=== PATIENT | male | born 1935 | race Caucasian/White ===

== ENCOUNTER 2018-08-01 20:38 | Inpatient (IN) | payer OTHER ==
[~2018-08-01] VITALS: Ht 175.2 cm; Wt 69.5 kg
--- NOTE | ~2018-08-01 | CON ---
[place], [place] REPORT OF CONSULTATION [id number] UN[facility] #: [id number] ROOM: 525 DOCTOR: PHD HIRAM SONNY BIRTHDATE: [birth year] DOS: 08/02/2018 HISTORY OF PRESENT ILLNESS: The patient is an 83-year-old male referred by the hospitalist with concerns for depression. The patient's daughter had requested he receive counseling during his stay due to his being in a assisted and the patient being very depressed and anxious about this. At the present time, the patient is on the 5th floor at [facility]. The patient has been for 64 years and has 2 daughters who live in [place]. The patient has been living alone since his lives at a assisted. 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 He denied alcohol, tobacco, or illegal drug use. PAST MEDICAL HISTORY: Coronary artery disease, diabetes, hypertension, hyperglycemia, neuropathy, osteoarthritis, syncope, and vitamin D deficiency. MEDICATIONS: Neurontin, Zestril, Toprol-XL, Wellbutrin-XL, Norvasc, Lovenox, Humalog, and Protonix. PHYSICAL EXAMINATION: GENERAL: The patient was lying comfortably in bed, in no apparent distress. NEUROLOGIC: He was awake, alert and oriented to person, place, time and situation. Eye contact and social skills were fair. The patient was cooperative, but guarded with respect to his emotional status. He reported increased depression and anxiety about his moving to a assisted. Mood was depressed and irritable and affect was restricted in range. He firmly denied suicidal and homicidal ideation, plan, and intent. He states that he is able to manage his depression and anxiety on his own, but could not identify any active coping strategies. Speech was within normal limits with respect to rhythm, rate, volume, and tone. Expressive and receptive language appeared within normal limits on a conversational basis. The patient appeared to be mildly confused at times discussing his history. Insight and judgment appeared fair. The patient denied a need or desire for mental health treatment at this time. DIAGNOSIS: Adjustment disorder with mixed anxiety and depressed mood. RECOMMENDATIONS: The patient would likely benefit from individual counseling; however, the patient stated that he is not interested at this time. Thank you very much for this consult. [place], [place] REPORT OF CONSULTATION NAME: QUINN MONK Keven UNIT #: [id number] ROOM: 525 DOCTOR: HIRAM, PHD SONNY BIRTHDATE: [birth year] Bernadette Barry, PhD CM:CONSTR:REPORT OF CONSULTATION 1414 08/03/18 0402 interface
--- NOTE | ~2018-08-01 | EKG ---
[place], [place] ELECTROCARDIOGRAM REPORT NAME: CHAS MONK UNIT #: [id number] ROOM: 505 DOCTOR: EPIPHANY DRAFT REPORT BIRTHDATE: [birth year] [facility] Test Date: 2018-08-02 Test Time: 00:34:51 Pat Name: CHAS MONK Department: Room: 505 Gender: M Health Care Law Specialist: Chas Javier : 1935 Requested By: SAÚL GOODE Order Number: [id number] Reading MD: Chas Lopez MD Measurements Intervals [place] Rate: 67 P: 38 WY: 213 QRS: -55 QRSD: 107 T: 26 QT: 458 QTc: 484 Interpretive Statements Sinus rhythm Borderline prolonged W[place] interval LAD, consider left anterior fascicular block Anterior Q waves, possibly due to previous anterior RI Baseline wander in lead(s) V3 Compared to ECG 08/01/2018 No significant change Electronically Signed On 08-02-2018 11:43:49 PST by Chas Lopez MD CM:EKGRPT:ELECTROCARDIOGRAM REPORT 0034 1143 SAÚL GOODE MD EPIPHANY DRAFT REPORT SAÚL GOODE MD
--- NOTE | ~2018-08-01 | EKG ---
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 Automatic: Chas Javier : 1935 Requested By: SAÚL GOODE Order Number: [id number] Reading MD: Chas Lopez MD Measurements Intervals [place] Rate: 70 P: 34 WV: 243 QRS: -49 QRSD: 112 T: 20 QT: 419 QTc: 453 Interpretive Statements Sinus rhythm Prolonged WV interval LAD, consider left anterior fascicular block Cannot rule out previous anterior MA Baseline wander in lead(s) II,III,aVL,aVF Compared to ECG 07/27/2018 12:06:06 First degree AV block now present Sinus bradycardia no longer present Electronically Signed On 08-02-2018 11:41:39 PST by Chas Lopez MD CM:EKGRPT:ELECTROCARDIOGRAM REPORT 1141 SAÚL GOODE MD EPIPHANY DRAFT REPORT SAÚL GOODE MD
--- NOTE | ~2018-08-01 | EKG ---
[place], [place] ELECTROCARDIOGRAM REPORT NAME: CHAS MONK UNIT #: [id number] ROOM: 505 DOCTOR: EPIPHANY DRAFT REPORT BIRTHDATE: [birth year] [facility] Test Date: 2018-08-02 Test Time: 03:26:45 Pat Name: CHAS MONK Department: Room: 505 Gender: M Survey Manager: : 1935 Requested By: SAÚL GOODE Order Number: [id number] Reading MD: Chas Lopez MD Measurements Intervals [place] Rate: 58 P: 26 VT: 219 QRS: -50 QRSD: 110 T: 31 QT: 479 QTc: 471 Interpretive Statements Sinus bradycardia Borderline prolonged [place] interval LAD, consider left anterior fascicular block Anterior Q waves, possibly due to previous anterior AR Baseline wander in lead(s) V4,V5 Compared to ECG 08/02/2018 No significant change Electronically Signed On 08-02-2018 11:45:45 PST by Chas Lopez MD CM:EKGRPT:ELECTROCARDIOGRAM REPORT 0326 1145 SAÚL GOODE MD EPIPHANY DRAFT REPORT SAÚL GOODE MD
[2018-08-01 20:38] VITALS: BP 177/102
[~2018-08-01 20:38] MED LIST: AMLODIPINE BESYL5 MG PO; ARTHROTEC 75 M1 EACH PO; BUPROPION XL300 MG PO; METOPROLOL SUCC50 M1 PO; NEURONTIN600 MG PO; OXYCODONE HCL15 MG PO; QUINAPRIL40 MG PO; RESTORIL30 M1 PO; TOPROL XL25 MG PO
[2018-08-01 21:35] LABS: BASO % 0.2 % (0.0-1.0); EOS # 0.1 10*3/uL (0.0-0.4); EOS % 1.7 % (1.0-4.0); HEMATOCRIT 37.3 % (42.0-52.0); HEMOGLOBIN 12.6 g/dl (14.0-18.0); LYMPH # 0.7 10*3/uL (1.3-4.4); LYMPH % 9.2 % (27.0-41.0); MEAN CELL VOLUME 93.5 fl (80.0-94.0); MEAN CORPUSCULAR HGB 31.6 pg (27.0-31.0); MEAN CORPUSCULAR HGB CONC 33.8 g/dl (33.0-37.0); MEAN PLATELET VOLUME 9.1 fl (9.6-12.3); MONO # 0.8 10*3/uL (0.1-1.0); MONO % 10.4 % (3.0-9.0); NEUT # 6.3 10*3/uL (2.3-7.9); NEUT % 78.3 % (47.0-73.0); PLATELET COUNT AUTOMATED 241 10*3/uL (130-400); RED BLOOD COUNT 3.99 10*6/uL (4.50-5.90); RED CELL DISTRI WIDTH 13.4 % (0-14.5); WHITE BLOOD COUNT 8.1 10*3/uL (4.8-10.8)
[2018-08-01 21:44] LABS: ACT PARTIAL THROMBO TIME 24.3 SECONDS (20.8-31.5)
[2018-08-01 21:48] VITALS: BP 151/73
[2018-08-01 21:52] LABS: ALBUMIN 3.5 gm/dl (3.1-4.5); ALKALINE PHOSPHATASE 105 U/L (45-117); BUN 19 mg/dl (7-24); CHLORIDE 107 mmol/L (98-107); CREATININE 1.14 mg/dL (0.70-1.30); LIPASE 159 U/L (73-393); POTASSIUM 4.1 mmol/L (3.5-5.1); SGOT/AST 14 IU/L (3-35); SGPT/ALT 21 U/L (12-78); SODIUM 139 mmol/L (136-145); TOTAL PROTEIN 7.2 gm/dL (6.4-8.2)
[2018-08-01 21:53] LABS: TROPONIN I < 0.015 ng/ml (<0.045)
[2018-08-01 22:28] LABS: BILIRUBIN NEGATIVE (NEGATIVE); BLOOD NEGATIVE (NEGATIVE); CLARITY CLEAR (CLEAR); COLOR YELLOW (YELLOW); GLUCOSE NEGATIVE (NEGATIVE); KETONE TRACE (NEGATIVE); LEUKO ESTERASE NEGATIVE (NEGATIVE); NITRITE NEGATIVE (NEGATIVE); UROBILINOGEN 0.2 E.U./dl (0.2-1.0)
[2018-08-01 23:55] VITALS: BP 170/90
[2018-08-02 00:20] VITALS: BP 180/84
[2018-08-02 08:00] VITALS: BP 144/72
[2018-08-02 09:45] LABS: BASO % 0.1 % (0.0-1.0); EOS # 0.1 10*3/uL (0.0-0.4); EOS % 1.6 % (1.0-4.0); HEMATOCRIT 35.1 % (42.0-52.0); HEMOGLOBIN 11.6 g/dl (14.0-18.0); LYMPH # 0.9 10*3/uL (1.3-4.4); LYMPH % 10.4 % (27.0-41.0); MEAN CELL VOLUME 94.9 fl (80.0-94.0); MEAN CORPUSCULAR HGB 31.4 pg (27.0-31.0); MEAN PLATELET VOLUME 8.8 fl (9.6-12.3); MONO # 0.9 10*3/uL (0.1-1.0); MONO % 9.8 % (3.0-9.0); NEUT # 6.7 10*3/uL (2.3-7.9); NEUT % 77.6 % (47.0-73.0); PLATELET COUNT AUTOMATED 205 10*3/uL (130-400); RED CELL DISTRI WIDTH 13.5 % (0-14.5); WHITE BLOOD COUNT 8.7 10*3/uL (4.8-10.8)
[2018-08-02 09:57] LABS: BUN 15 mg/dl (7-24); CHLORIDE 107 mmol/L (98-107); CREATININE 0.97 mg/dL (0.70-1.30); PHOSPHOROUS 2.2 mg/dL (2.5-4.9); SODIUM 141 mmol/L (136-145)
[2018-08-02 12:00] VITALS: BP 159/74
[2018-08-02 16:00] VITALS: BP 138/72; BP 149/55
[2018-08-02 20:00] VITALS: BP 127/85
[2018-08-03] VITALS: BP 146/96
[2018-08-03 08:00] VITALS: BP 182/95
== END 2018-08-03 10:20 | disposition home or self-care (01) | DRG 446 ==
LOC: ED 20:38 → EDHOLD 23:58 → 5E 23:58 → ICCU 08-03 08:13
PROVIDERS: Emergency Medicine Emergency Medical Services; Student in an Organized Health Care Education/Training Program
DX: K80.80 Other cholelithiasis without obstruction (principal); R19.7 Diarrhea, unspecified; R53.1 Weakness; D64.9 Anemia, unspecified; D72.9 Disorder of white blood cells, unspecified; K44.9 Diaphragmatic hernia without obstruction or gangrene; K59.00 Constipation, unspecified; M51.36 Other intervertebral disc degeneration, lumbar region; I10 Essential (primary) hypertension; E11.65 Type 2 diabetes mellitus with hyperglycemia; I25.10 Atherosclerotic heart disease of native coronary artery without angina pectoris; F43.23 Adjustment disorder with mixed anxiety and depressed mood; Z51.5 Encounter for palliative care; R07.89 Other chest pain; Z66 Do not resuscitate; M19.90 Unspecified osteoarthritis, unspecified site; E11.40 Type 2 diabetes mellitus with diabetic neuropathy, unspecified; K21.9 Gastro-esophageal reflux disease without esophagitis; Z96.653 Presence of artificial knee joint, bilateral; E55.9 Vitamin D deficiency, unspecified; R00.1 Bradycardia, unspecified; Z88.0 Allergy status to penicillin; Z91.81 History of falling; Z90.49 Acquired absence of other specified parts of digestive tract; Z95.5 Presence of coronary angioplasty implant and graft; Z80.9 Family history of malignant neoplasm, unspecified; Z82.3 Family history of stroke; Z79.899 Other long term (current) drug therapy

== ENCOUNTER → 2022-07-16 | Outpatient (CLI) | payer MEDICARE | END | disposition home or self-care (01) | LOC: WOUNDCARE 13:45 | PROVIDERS: ATTEND Nurse Practitioner Family | DX: L89.613 Pressure ulcer of right heel, stage 3 (principal); L89.626 Pressure-induced deep tissue damage of left heel; M19.90 Unspecified osteoarthritis, unspecified site; I10 Essential (primary) hypertension; Z87.891 Personal history of nicotine dependence; Z90.49 Acquired absence of other specified parts of digestive tract; Z96.659 Presence of unspecified artificial knee joint; Z79.82 Long term (current) use of aspirin; Z79.84 Long term (current) use of oral hypoglycemic drugs ==

== ENCOUNTER → 2022-07-23 | Outpatient (CLI) | payer MEDICARE | END | disposition home or self-care (01) | LOC: WOUNDCARE 02:36 | PROVIDERS: ATTEND Surgery Vascular Surgery | DX: L89.613 Pressure ulcer of right heel, stage 3 (principal); L89.626 Pressure-induced deep tissue damage of left heel; E11.9 Type 2 diabetes mellitus without complications; M19.90 Unspecified osteoarthritis, unspecified site; I10 Essential (primary) hypertension; F32.9 Major depressive disorder, single episode, unspecified; Z87.891 Personal history of nicotine dependence; Z90.49 Acquired absence of other specified parts of digestive tract; Z95.5 Presence of coronary angioplasty implant and graft; Z96.659 Presence of unspecified artificial knee joint ==

== ENCOUNTER → 2022-07-29 | Outpatient (CLI) | payer MEDICARE | END | disposition home or self-care (01) | LOC: WOUNDCARE 08:27 | PROVIDERS: ATTEND Nurse Practitioner Family | DX: L89.613 Pressure ulcer of right heel, stage 3 (principal); L89.626 Pressure-induced deep tissue damage of left heel; I10 Essential (primary) hypertension; E11.9 Type 2 diabetes mellitus without complications; M19.90 Unspecified osteoarthritis, unspecified site; F32.9 Major depressive disorder, single episode, unspecified; Z87.891 Personal history of nicotine dependence; Z90.49 Acquired absence of other specified parts of digestive tract; Z95.5 Presence of coronary angioplasty implant and graft; Z96.659 Presence of unspecified artificial knee joint ==